=== PATIENT | male | born 1995 | race American Indian/Alaskan Native ===

== ENCOUNTER 2021-03-01 06:56 | Emergency (ER) | payer SELFPAY ==
[2021-03-01 07:30] VITALS: BP 148/90
--- NOTE | 2021-03-01 10:28 | Emergency Department Report ---
ED Extremity Problem HPI - General Chief complaint: Extremity Problem,Nontraumatic Stated complaint: LEFT LEG/FOOT NUMBNESS Time Seen by Provider: 03/01/21 10:09 Source: patient Mode of arrival: Ambulatory Limitations: No Limitations - History of Present Illness Initial comments: 25-year-old male with no significant past history presents to the ER today with complaints of intermittent numbness and tingling to the plantar aspect of his left foot. Patient states his symptoms started about 2 weeks ago. He reports associated pain to the plantar aspect of his left foot which gets worse with weightbearing and walking. He states that he also had charley horse which lasted for 2 to 3 days in the muscles of his left upper leg and left lower leg and recently started having intermittent random sharp pain diffusely throughout the entire left leg including his left foot. He denies any numbness to the left upper leg or the left lower leg he states that is mainly to the plantar aspect of the foot. He denies any associated left hip pain or lower back pain. He denies any injury. 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 He denies any chest pain or shortness of breath. He denies any swelling, skin color changes, or any other symptoms at this time MD Complaint: extremity pain -: week(s) (2) - Related Data Previous Rx's Medication Instructions Recorded Last Taken Type Ketorolac [Toradol] 10 mg PO Q6H PRN #20 tablet 03/01/21 Unknown Rx methylPREDNISolone [Medrol 4MG 4 mg PO DAILY #1 tab.ds.pk 03/01/21 Unknown Rx DOSEPAK (21 tabs)] Allergies Allergy/AdvReac Type Severity Reaction Status Date / Time No Known Allergies Allergy Unverified 03/01/21 07:27 ED Review of Systems ROS: Stated complaint: LEFT LEG/FOOT NUMBNESS Other details as noted in HPI ED Past Medical Hx - Past Medical History Previous Medical History?: Yes Hx Asthma: Yes - Surgical History Past Surgical History?: No - Medications Home Medications: Home Medications Medication Instructions Recorded Confirmed Last Taken Type Ketorolac [Toradol] 10 mg PO Q6H PRN #20 tablet 03/01/21 Unknown Rx methylPREDNISolone [Medrol 4MG 4 mg PO DAILY #1 tab.ds.pk 03/01/21 Unknown Rx DOSEPAK (21 tabs)] ED Physical Exam - General Limitations: No Limitations ED Course Vital Signs 03/01/21 07:29 Temperature 98.1 F Pulse Rate 74 Respiratory 18 Rate Blood Pressure 148/90 O2 Sat by Pulse 100 Oximetry ED Medical Decision Making - Lab Data Result diagrams: 03/01/21 10:57 03/01/21 10:57 - Radiology Data Radiology results: report reviewed Patient: JOLENE KIDD MR#: [id number] : 1995 Acct:[id number] Age/Sex: 25 / M ADM Date: 03/01/21 Loc: ED Attending Dr: Ordering Physician: AMALIA HINTON Date of Service: 03/01/21 Procedure(s): VL venous duplex LE LT Accession Number(s): [id number] cc: AMALIA HINTON DUPLEX DOPPLER LOWER EXTREMITY VEINS, LEFT INDICATION / CLINICAL INFORMATION: left leg pain. TECHNIQUE: Duplex doppler imaging was performed through the veins of the left lower extre mity using venous compression and other maneuvers. COMPARISON: None available. FINDINGS: LEFT COMMON FEMORAL VEIN: Negative. LEFT FEMORAL VEIN: Negative. LEFT POPLITEAL VEIN: Negative. LEFT CALF VEINS: Negative. ADDITIONAL FINDINGS: None. IMPRESSION: 1. No sonographic evidence for DVT in the left lower extremity. Signer Name: Yvan Avelar MD FACR Signed: 03/01/2021 12:03 PM Workstation Name: [id number] Transcribed By: [place] Dictated By: Yvan Avelar MD Electronically Authenticated By: Yvan Avelar MD Signed Date/Time: 03/01/21 1203 DD/ 1202 TD/TT: - Medical Decision Making Labs reviewed and unremarkable. Venous Doppler is negative. Discussed results with patient. Informed him that at this time his symptoms could be related to lumbar radiculopathy, or tendinitis, plantar fasciitis or tarsal tunnel syndrome since majority symptoms appears to be mainly around his left ankle and foot. His physical exam does not suggest septic joint, acute arterial occlusion, cauda equina/cord compression syndrome, CVA/TIA or any other emergent conditions warranting additional testing, admission, specialist consult or transfer at this time. Recommend to patient that he follows up with orthopedic and/or certified professional coder. Patient expressed understanding of instructions and agree with plan. Patient stable at time of discharge. Critical care attestation.: If time is entered above; I have spent that time in minutes in the direct care of this critically ill patient, excluding procedure time. ED Disposition Clinical Impression: Left leg pain, Left foot pain, Paresthesia of foot Disposition: - TO HOME OR SELFCARE Is pt being admited?: No Does the pt Need Aspirin: No Condition: Stable Instructions: Paresthesia, Leg Cramps, Foot Pain Additional Instructions: Take the toradol and the medrol dose pack as prescribed. I recommend proper sitting techniques while working. Follow up with the Orthopedic/certified professional coder listed on your discharge instructions. Return to ED if worse. Prescriptions: methylPREDNISolone [Medrol 4MG DOSEPAK (21 tabs)] 4 mg PO DAILY #1 tab.ds.pk Ketorolac [Toradol] 10 mg PO Q6H PRN #20 tablet PRN Reason: Pain Referrals: ERICKA OSORIO DPM [Staff Physician] - 3-5 Days ([facility]) SANIYA LIANG MD [Staff Physician] - 3-5 Days ([employer]) Time of Disposition: 12:30
[2021-03-01] MEDS ORDERED: DEXAMETHASONE 4 MG TAB PO ONE (10:45)
[2021-03-01] MEDS ORDERED: KETOROLAC 10 MG TAB PO ONE (10:45)
[2021-03-01 11:12] LABS: Basophils % (Auto) 0.6 % (0.0-1.8); Eosinophils # (Auto) 0.1 K/mm3 (0.0-0.4); Eosinophils % (Auto) 1.5 % (0.0-4.3); Hematocrit 42.6 % (35.5-45.6); Hemoglobin 14.1 gm/dl (11.8-15.2); Lymphocytes # (Auto) 2.3 K/mm3 (1.2-5.4); Mean Corpuscular HGB Conc 33 % (32-34); Mean Corpuscular Volume 89 fl (84-94); Monocytes # (Auto) 0.5 K/mm3 (0.0-0.8); Monocytes % (Auto) 6.8 % (0.0-7.3); Platelet Count 212 K/mm3 (140-440); Red Cell Distribution Width 12.8 % (13.2-15.2)
[2021-03-01 11:41] LABS: Alanine Aminotransferase 14 units/L (7-56); Albumin 4.7 g/dL (3.9-5); BUN/Creatinine Ratio 12; Blood Urea Nitrogen 11 mg/dL (9-20); Calcium 9.8 mg/dL (8.4-10.2); Hemolysis Index 14
--- NOTE | 2021-03-01 12:07 | Vascular Lab Report ---
DUPLEX DOPPLER LOWER EXTREMITY VEINS, LEFT INDICATION / CLINICAL INFORMATION: left leg pain. TECHNIQUE: Duplex doppler imaging was performed through the veins of the left lower extremity using venous compr ession and other maneuvers. COMPARISON: None available. FINDINGS: LEFT COMMON FEMORAL VEIN: Negative. LEFT FEMORAL VEIN: Negative. LEFT POPLITEAL VEIN: Negative. LEFT CALF VEINS: Negative. ADDITIONAL FINDINGS: None. IMPRESSION: 1. No sonographic evidence for DVT in the left lower extremity. Signer Name: Yvan Avelar MD FACJayce Signed: 03/01/2021 12:03 PM Workstation Name: [id number]
== END 2021-03-01 12:54 | disposition home or self-care (01) ==
LOC: EDSEX → ED 06:56
DX: M79.605 Pain in left leg (principal); M79.672 Pain in left foot; R20.0 Anesthesia of skin; J45.909 Unspecified asthma, uncomplicated; Z98.890 Other specified postprocedural states; Z79.899 Other long term (current) drug therapy
CPT/HCPCS: 36415; 80053; 83735; 85025; 93971; 99284; J8540